=== PATIENT | female | born 1990 | race Two or more races ===

== ENCOUNTER 2018-09-06 12:09 | Outpatient (CLI) | payer OTHER | END 2018-09-06 12:11 | disposition home or self-care (01) | LOC: RX STUDY 12:09 | DX: N30.00 Acute cystitis without hematuria (principal) ==

== ENCOUNTER → 2019-04-17 | Outpatient (CLI) | payer OTHER | END | disposition home or self-care (01) | LOC: PRENATAL 08:00 | DX: O99.89 Other specified diseases and conditions complicating pregnancy, childbirth and the puerperium (principal); O35.3XX1 Maternal care for (suspected) damage to fetus from viral disease in mother, fetus 1 ==

== ENCOUNTER → 2019-06-25 | Outpatient (CLI) | payer OTHER | END | disposition home or self-care (01) | LOC: PRENATAL 08:30 | DX: O26.843 Uterine size-date discrepancy, third trimester (principal); O99.89 Other specified diseases and conditions complicating pregnancy, childbirth and the puerperium; O99.013 Anemia complicating pregnancy, third trimester ==

== ENCOUNTER 2019-08-24 02:03 | Inpatient (IN) | payer OTHER ==
[~2019-08-24] VITALS: Ht 165.1 cm; Wt 70.8 kg
[2019-08-24] MEDS ORDERED: PRENATAL CAPLE1 EAC1 PO (02:21)
[2019-08-24] MEDS ORDERED: FUSION PLUS CA1 EACH PO (02:22)
[2019-08-24] MEDS ORDERED: SYNTHROID50 MCG PO (02:22)
[2019-08-24] MEDS ORDERED: NEURIN PO (02:23)
[2019-08-26] MEDS ORDERED: IBUPROFEN400 MG PO (11:43)
== END 2019-08-26 12:41 | disposition home or self-care (01) | DRG 807 ==
LOC: LDR 02:03 → OB/GYN 08:17
PROVIDERS: ADMIT Obstetrics & Gynecology
PROC: 10E0XZZ Delivery of Products of Conception, External Approach (ICD-10-PCS; principal; 2019-08-24)
PROC: 4A1HXFZ Monitoring of Products of Conception, Cardiac Rhythm, External Approach (ICD-10-PCS; 2019-08-24)
PROC: 3E033VJ Introduction of Other Hormone into Peripheral Vein, Percutaneous Approach (ICD-10-PCS; 2019-08-24)
PROC: 0HQ9XZZ Repair Perineum Skin, External Approach (ICD-10-PCS; 2019-08-24)
DX: O70.0 First degree perineal laceration during delivery (principal); Z37.0 Single live birth; Z3A.37 37 weeks gestation of pregnancy

== ENCOUNTER 2024-07-02 09:18 | Inpatient (IN) | payer BC ==
[~2024-07-02] VITALS: Ht 165.1 cm; Wt 79.4 kg
[2024-07-02] VITALS (7 sets, daily range): BP systolic 109–139; BP diastolic 48–80
[~2024-07-02 09:18] MED LIST: FUSION PLUS CA1 EACH PO; IBUPROFEN400 MG PO; NEURIN PO; PRENATAL CAPLE1 EAC1 PO; SYNTHROID50 MCG PO
[2024-07-02] MEDS ORDERED: CHILDREN'S ASPI81 MG PO (09:28)
[2024-07-02] MEDS ORDERED: RINGERS SOLUTION,LACTATED 1,000 ML IV SCH (09:30)
[2024-07-02 10:07] LABS: HEMATOCRIT 31.8 % (36.0-45.00); HEMOGLOBIN 11.5 g/dL (12.0-15.00); MEAN CELL VOLUME 82.8 fL (80.00-100.00); MEAN CORPUSCULAR HEMOGLOBIN 29.9 pg (27.00-32.0); MEAN CORPUSCULAR HGB CONC 36.1 g/dl (32.0-36.0); PLATELET COUNT 188 K/uL (150-450); RED BLOOD COUNT 3.84 M/uL (4.00-6.00); RED CELL DISTRIBUTION WIDTH 14.8 % (11.5-14.5)
[2024-07-02 10:46] LABS: INR < 0.93; PARTIAL THROMBOPLASTIN TIME 25.6 SECONDS (22.0-34.0); PROTHROMBIN TIME 9.9 SECONDS (9.0-11.5)
[2024-07-02 11:48] LABS: ALBUMIN 2.3 gm/dL (3.4-5.0); BILIRUBIN TOTAL 0.16 mg/dL (0.3-1.2); CALCIUM 8.5 mg/dL (8.5-10.1); CREATININE SERUM 0.7 mg/dL (0.55-1.02); GFR 94.68; GLOBULINA 3.8 G/DL (2.4-3.5); POTASSIUM 4.23 mEq/L (3.5-5.1); TOTAL PROTEIN 6.1 gm/dL (6.4-8.2)
[2024-07-02] MEDS ORDERED: OXYTOCIN 1,000 ML IV SCH (14:00)
[2024-07-02] MEDS ORDERED: CHLORHEXIDINE GLUCONATE 120 ML BOTTLE TP ONE (14:00)
[2024-07-02] MEDS ORDERED: OxyCODONE HCL/APAP UD (PERCOCET) PO PRN (14:00)
[2024-07-02] MEDS ORDERED: ERYTHROMYCIN BASE OPHT 1GM EACH TUBE OP ONE (15:00)
[2024-07-02] MEDS ORDERED: LIDOCAINE HCL 1% 10ML VIAL IJ ONE (15:00)
[2024-07-02] MEDS ORDERED: KETOROLAC TROMETHAMINE 10 MG TABLET PO SCH (18:00)
[2024-07-03 01:17] VITALS: BP 114/74
[2024-07-03 08:00] VITALS: BP 115/78
[2024-07-03 16:04] VITALS: BP 113/72
[2024-07-04 01:14] VITALS: BP 114/73
[2024-07-04 08:00] VITALS: BP 128/77
== END 2024-07-04 11:30 | disposition home or self-care (01) | DRG 807 ==
LOC: OB/GYN 09:18 → LDR 09:18 → OB/GYN 14:10 → LDR 07-10 15:10
PROVIDERS: ADMIT Obstetrics & Gynecology Maternal & Fetal Medicine; ATTEND Obstetrics & Gynecology Maternal & Fetal Medicine
PROC: 10D07Z6 Extraction of Products of Conception, Vacuum, Via Natural or Artificial Opening (ICD-10-PCS; principal; 2024-07-02)
PROC: 0KQM0ZZ Repair Perineum Muscle, Open Approach (ICD-10-PCS; 2024-07-02)
PROC: 0W8NXZZ Division of Female Perineum, External Approach (ICD-10-PCS; 2024-07-02)
PROC: 4A1HXCZ Monitoring of Products of Conception, Cardiac Rate, External Approach (ICD-10-PCS; 2024-07-02)
DX: O70.1 Second degree perineal laceration during delivery (principal); Z37.0 Single live birth; O66.5 Attempted application of vacuum extractor and forceps; Z3A.38 38 weeks gestation of pregnancy